=== PATIENT | female | born 1995 | race African-American/Black ===

== ENCOUNTER 2016-07-03 07:06 | Emergency (ER) | payer SELFPAY ==
[~2016-07-03] VITALS: Ht 177.8 cm; Wt 113.4 kg
[~2016-07-03 07:06] MED LIST: METH-37 PO; TRAM-29 PO
[2016-07-03 07:15] VITALS: BP 155/93
[2016-07-03] MEDS ORDERED: HYDR115S2 PO (08:01)
[2016-07-03] MEDS ORDERED: PRED50TA PO (08:01)
[2016-07-03] MEDS ORDERED: AMOX1TAB61 PO (08:01)
--- NOTE | 2016-07-03 08:01 | PHYS DOC ---
Past Medical History Past Medical History: Asthma, Bronchitis Additional Past Medical Histor: obese Past Surgical History: No Surgical History Alcohol Use: Occasionally Drug Use: Marijuana Adult General Chief Complaint Chief Complaint: Congestion HPI HPI Patient is a 20 year old female presents the emergency room today with complaint of ongoing cough, congestion, right sinus pressure/pain as well as right earache that is been progressive over the past 2 weeks. Patient states that she does have a history of asthma. She is not have a history of pneumonia or cardiac disease. Patient denies hospitalization, foreign travel or antibiotic use within the past 90 days. Review of Systems Review of Systems Constitutional: Denies fever or chills [] Eyes: Denies change in visual acuity, redness, or eye pain [] HENT: Denies nasal congestion or sore throat [] Respiratory: Denies cough or shortness of breath [] Cardiovascular: No additional information not addressed in HPI [] GI: Denies abdominal pain, nausea, vomiting, bloody stools or diarrhea [] : Denies dysuria or hematuria [] Musculoskeletal: Denies back pain or joint pain [] Integument: Denies rash or skin lesions [] Neurologic: Denies headache, focal weakness or sensory changes [] Endocrine: Denies polyuria or polydipsia [] Allergies Allergies Allergies Coded Allergies Type Severity Reaction Last Updated Verified No Known Drug Allergies 10/22/13 No Physical Exam Physical Exam Constitutional: Well developed, well nourished, no acute distress, non-toxic appearance. Patient is ill-appearing but nontoxic. HENT: Normocephalic, atraumatic, bilateral external ears normal, oropharynx moist, no oral exudates. There is tenderness to palpation to the right maxillary sinus region. There is a scant amount of mucopurulent drainage in the bilateral nares with mucosal inflammation. Right tympanic membrane is erythematous and slightly bulging. The margins of the umbo are not distorted. There is no fluid meniscus or perforation. There is no evidence of mastoiditis. Eyes: PERRLA, EOMI, conjunctiva normal, no discharge. [] Neck: Normal range of motion, no tenderness, supple, no stridor. [] Cardiovascular:Heart rate regular rhythm, no murmur [] Lungs & Thorax: There is no respiratory distress or respiratory fatigue. Patient is able speak in full sentences. Lung sounds are clear to auscultation bilaterally. Abdomen: Bowel sounds normal, soft, no tenderness, no masses, no pulsatile masses. [] Skin: Warm, dry, no erythema, no rash. [] Back: No tenderness, no CVA tenderness. [] Extremities: No tenderness, no cyanosis, no clubbing, ROM intact, no edema. [] Neurologic: Alert and oriented X 3, normal motor function, normal sensory function, no focal deficits noted. [] Psychologic: Affect normal, judgement normal, mood normal. [] Current Patient Data Vital Signs Vital Signs Date Time Temp Pulse Resp B/P Pulse Ox O2 Delivery O2 Flow Rate FiO2 07/03/16 07:15 99.0 97 16 99 Room Air 99.0 EKG EKG [] Radiology/Procedures Radiology/Procedures [] Course & Med Decision Making Course & Med Decision Making Pertinent Labs and Imaging studies reviewed. (See chart for details) [] Dragon Disclaimer Dragon Disclaimer This electronic medical record was generated, in whole or in part, using a voice recognition dictation system. Departure Departure Impression: Primary Impression: Sinusitis, acute maxillary Additional Impression: Otitis media Disposition: HOME, SELF-CARE Condition: GOOD Referrals: BERNIE HARRELL MD (PCP) Patient Instructions: Otitis Media, Adult, [id number], Sinusitis, Easy-to- Read Additional Instructions: 1. Take the medications as prescribed. 2. Review discharge instructions; specifically reasons to return to the emergency room. 3. Call your primary care doctor's office tomorrow morning to schedule follow- up appointment for reevaluation by the end of the week. Scripts Hydrocodone/Chlorphen Polis (Tussionex Pennkinetic Susp)480 Ml [id number] Ml PO BID #100 ML Prov:JARAD WONG 07/03/16 Amoxicillin/Potassium Clav (Augmentin 875-125 Tablet)1 Each Tablet1 Tab PO BID # 20 TAB Prov:JARAD WONG 07/03/16 Prednisone 50 Mg [id number] Mg PO DAILY 5 Days Prov:JARAD WONG 07/03/16 Problem Qualifiers JARAD WONG Jul 03, 2016 08:01
== END 2016-07-03 08:00 | disposition home or self-care (01) ==
LOC: ER 07:06
DX: J01.00 Acute maxillary sinusitis, unspecified (principal); H66.91 Otitis media, unspecified, right ear; J45.909 Unspecified asthma, uncomplicated; F12.10 Cannabis abuse, uncomplicated; E66.9 Obesity, unspecified; Z68.35 Body mass index [BMI] 35.0-35.9, adult
CPT/HCPCS: 99283